=== PATIENT | female | born 1990 | race Caucasian/White ===

== ENCOUNTER 2020-08-15 18:52 | Inpatient (IN) | payer BC ==
[~2020-08-15] VITALS: Ht 157.5 cm; Wt 98.0 kg
[2020-08-16 08:15] LABS: RED BLOOD COUNT 4.64 M/UL (4.00-5.10); WHITE BLOOD COUNT 10.4 K/UL (4.5-11.0)
[2020-08-16] MEDS ORDERED: PRENATAL TABLE1 EAC1 PO (13:14)
[2020-08-17 06:33] LABS: HEMOGLOBIN 12.2 gm/dl (12.3-15.3)
== END 2020-08-17 17:57 | disposition home or self-care (01) | DRG 807 ==
LOC: GENOP 18:52 → OB 08-16 07:34
PROVIDERS: ADMIT Obstetrics & Gynecology
PROC: 10E0XZZ Delivery of Products of Conception, External Approach (ICD-10-PCS; principal; 2020-08-16)
PROC: 10907ZC Drainage of Amniotic Fluid, Therapeutic from Products of Conception, Via Natural or Artificial Opening (ICD-10-PCS; 2020-08-16)
PROC: 4A0HXCZ Measurement of Products of Conception, Cardiac Rate, External Approach (ICD-10-PCS; 2020-08-16)
DX: O80 Encounter for full-term uncomplicated delivery (principal); Z37.0 Single live birth; Z3A.38 38 weeks gestation of pregnancy; Z20.828 Contact with and (suspected) exposure to other viral communicable diseases
CPT/HCPCS: 36415; 51702; 81001; 82800; 85014; 85018; 85025; 87635; J2405; J2590; J3010; J7120